=== PATIENT | male | born 1990 | race Caucasian/White ===

== ENCOUNTER 2024-10-06 20:04 | Emergency (ER) | payer OTHER, SELFPAY ==
[2024-10-06 20:11] VITALS: BP 163/110; PULSE 87; RESP 16; TEMP 36.6; O2SAT 98; BMI 37.9
--- NOTE | 2024-10-06 20:56 | ED_ITS ---
HPI - General Adult General Chief complaint: Head Injury/Pain Stated complaint: Head trauma--hit by door Time Seen by Provider: 10/06/24 20:34 History of Present Illness HPI narrative: getting in semi truck, door swung open and hit top L of head, small scrape. denies headache, states nausea and dizzy, denies any other injury. no LOC, no blood thinners. did state he hasnt taken his bp meds today. 33-year-old man presenting to the emergency department following a head injury. Had been getting into his semi truck when the door was caught by the wind and swung into an unanticipated position and was struck on the top of his head. Blood pressure is noted to be a little bit up on arrival. Admittedly has not taken blood pressure medication today. Did not pass out. Does not have any neck or back pain. Was recommended for evaluation due to this injury. Did feel some nausea. No visual disturbance. Was not actually dizzy but lightheaded he corrects. Related Data Home Medications ?Medication ?Instructions ?Recorded ?Confirmed verapamil PO 10/06/24 Allergies Allergy/AdvReac Type Severity Reaction Status Date / Time tramadol Allergy Mild Swelling Verified 10/06/24 20:58 Review of Systems Status of ROS: Reports: 6 or more systems reviewed and unremarkable except as noted in History and below [facility] Social History service: No Exam Narrative: Exam Narrative: Very pleasant man. NAD. Calm. Skin is warm and dry. Breathing easily. There is slight erythema and abrasion at the left upper forehead consistent with impact as he describes. No defect appreciated otherwise. No fluid at external ear canals. Neck is supple nontender. Back nontender. Moving all extremities without difficulty. Cranial nerves 2-12 are intact. Pupils are 3 mm and equal and briskly reactive. Normal [id number]. Tandem gait is good. Negative Romberg's. Appears to be mentating well including serial sevens. Heart in regular rate and rhythm. Const: Vital Signs, click to edit/add: Vital Signs - 24 hr 10/06/24 20:11 Temperature 97.8 F Pulse Rate [Pulse Oximeter] 87 Respiratory Rate 16 Blood Pressure [Ri ght Upper Arm] 163/110 H Pulse Oximetry 98 Oxygen Delivery Me thod Room Air Documenting provider has reviewed patient's vital signs: yes Course Vital Signs Vital signs: Initial Vital Signs Temperature 97.8 F 10/06/24 20:11 Temperature Source Temporal Artery Scan 10/06/24 20:11 Pulse Rate 87 10/06/24 20:11 Respiratory Rate 16 10/06/24 20:11 Blood Pressure 163/110 H 10/06/24 20:11 Blood Pressure Mean 127 H 10/06/24 20:11 Blood Pressure Position Sitting 10/06/24 20:11 Pulse Oximetry 98 10/06/24 20:11 Oxygen Delivery Method Room Air 10/06/24 20:11 Vital Signs Temperature 97.8 F 10/06/24 20:11 Pulse Rate 87 10/06/24 20:11 Respiratory Rate 16 10/06/24 20:11 Blood Pressure 163/110 H 10/06/24 20:11 Pulse Oximetry 98 10/06/24 20:11 Oxygen Delivery Method Room Air 10/06/24 20:11 Temperature 97.8 F 10/06/24 20:11 Pulse Rate 87 10/06/24 20:11 Respiratory Rate 16 10/06/24 20:11 Blood Pressure 163/110 H 10/06/24 20:11 Pulse Oximetry 98 10/06/24 20:11 Oxygen Delivery Method Room Air 10/06/24 20:11 Medications Administered Medications: Discontinued Medications Generic Name Dose Route Start Last Admin Trade Name Richq PRN Reason Stop Dose Admin Ibuprofen 800 mg 10/06/24 21:10 10/06/24 21:19 Ibuprofen 400 Mg Tablet PO 10/06/24 21:11 800 mg ONCE ONE Administration Ondansetron HCl 4 mg 10/06/24 20:51 10/06/24 20:57 Ondansetron Odt 4 Mg Tab PO 10/06/24 20:52 4 mg ONCE ONE Administration Medical Decision Making MDM Narrative Medical decision making narrative: Appears to have sustained a light abrasion and closed head injury. Surely tender. No neck or back injury to prompt further investigation/imaging. I do not appreciate need for further evaluation at this time. I am not convinced of concussion. Would however monitor for related signs and symptoms. Did accept dose of ibuprofen. Recommending icing. See patient discharge plan for further discussion Might want ice your forehead this evening; maybe even a couple of times daily over the next 2-3 days. Can take ibuprofen or acetaminophen for pain otherwise. Signs or symptoms of a concussion might be nausea or headache upon exertion which can also be an indication to back off that level of activity and reassess in a week.? Concussion can also be represented by smoldering nausea or smoldering headache, difficulty with concentration, mood lability, general somnolence, sense of persistent fog or dizziness/lightheadedness.? If these symptoms are becoming apparent and continuing beyond 7-10 days, be re-evaluated for further recommendations. Discharge Plan Discharge Clinical Impression: Closed head injury, Abrasion Patient Disposition: Home, Self-Care Condition: Stable Additional Instructions: Might want ice your forehead this evening; maybe even a couple of times daily over the next 2-3 days. Can take ibuprofen or acetaminophen for pain otherwise. Signs or symptoms of a concussion might be nausea or headache upon exertion whi ch can also be an indication to back off that level of activity and reassess in a week.? Concussion can also be represented by smoldering nausea or smoldering headache, difficulty with concentration, mood lability, general somnolence, sense of persistent fog or dizziness/lightheadedness.? If these symptoms are becoming apparent and continuing beyond 7-10 days, be re-evaluated for further recommendations. Prescriptions: No Action verapamil PO Stand Alone Forms: [employer] Info Instructions
[2024-10-06] MEDS: ONDANSETRON ODT 4 MG TAB PO (20:57)
[2024-10-06] MEDS: IBUPROFEN 400 MG TABLET 800 MG PO (21:19)
--- OUTSIDE RECORDS SUMMARY | 2024-10-06 21:25 | XMS_ITS | Clinical Summary ---
Author Organization [facility] Address [address] [place] [address] Care Team Providers Care Delivery Driver Name Role Phone Unavailable Primary Care Provider Unavailabl e Source Comments [facility],non-owned Affiliates and Associated Physician Practices is amultiple site organization consisting of ambulatory clinics and hospital sitesin [place], [place], [place]. This disclosure is being madepursuant to the Care Everywhere program and may not contain all information available regarding this patient. Last updated 18.[facility] Allergies Active Allergy Reactions Criticality Noted Date Comments Flu Virus Vaccine Unknown 07/16/2024 Tramadol Urticaria Medium 07/16/2024 Medications * Be aware that medications may not be up to date on this document. Alwaysverify current medications with the patient. Medication Sig Dispensed Refills Start Date End Date Status verapamil (Isoptin) 120 MG tabletIndications:Hy pertension Take 1 (one) tablet by mouth once daily Reasons: High Blood Pressure Active tamsulosin (Flomax) 0.4 MG capsule Take 1 (one) capsule by mouth once daily At the same time every day after a meal. 30 capsule 07/18/2024 Active ciprofloxacin (Cipro) 500 MG tablet Take 1 (one) tablet by mouth every 12 hours 10 tablet 07/18/2024 Active phenazopyridine (Pyridium) 200 MG tablet Take 1 (one) tablet by mouth 3 times daily, after meals 6 tablet 07/18/2024 Active Active Problems Problem Noted Date Diagnosed Date Abdominal pain, generalized 07/16/2024 Encounters Date Type Department Care Team Description 07/16/2024 3:13 PM CRUSHER Anesthesia Event [facility] [place] [address] [place] [address] Ryder Brown MD Allen, Nicole M, APPRAISER REAL ESTATE-HAND BRIM IRONER 07/16/2024 2:55 PM CRUSHER - 07/16/2024 3:37 PM CRUSHER Surgery [facility] [place] [facility] [address] [place] [address] Angelika Molina MD CYSTOSCOPY WITH INSERTION URETERAL STENT 07/16/2024 11:02 AM CRUSHER - 07/18/2024 1:34 PM CRUSHER Emergency [facility] - Ortho/Surgical [address] [place] [address] Dedra Cosby, Nichol Alex MD El-Aneed, Wasseem, MD Hospitalist Discharge Disposition: Home or Self Care 07/16/[address] [facility] - Urology [address], [address] [place] [address] Amina White, MACHELLE-SYSTEMS PROGRAMMER ANALYST Surgery Scheduling 07/16/2024 Travel from Last 3 Months Social History Tobacco Use Types Packs/Day Years Used Date Smoking Tobacco: Every Day Cigarettes Smokeless Tobacco: Never Tobacco Cessation:Ready to Q uit: Not Asked; Counseling Given: Not Answered Alcohol Use Standard Drinks/Week Comments Yes 0 (1 standard drink = 0.6 oz pur e alcohol) OCCASSIONLY AUDIT-C Answer Date Recorded Q1: How often do you have a drink containing alc ohol? Monthly or less 07/16/2024 Q2: How many drinks containi ng alcohol do you have on a typical day when you are drinking? 1 or 2 07/16/2024 Q3: How often do you have si x or more drinks on one occasion? Less than monthly 07/16/2024 Sex and Gender Information Value Date Recorded Sex Assigned at Not on file Gender Identity Not on file Sexual Orientation Not on file Last Filed Vital Signs Vital Sign Reading Time Taken Comments Blood Pressure 148/96 07/18/2024 12:34 PM CRUSHER Pulse 82 07/18/2024 12:34 PM CRUSHER Temperature 36.8 C (98.2 F) 07/18/2024 12:34 PM CRUSHER Respiratory Rate 18 07/18/2024 12:34 PM CRUSHER Oxygen Saturation 95% 07/18/2024 12:34 PM CRUSHER Inhaled Oxygen Concentration - - Weight 100.7 kg (222 lb) 07/16/2024 8:03 PM CRUSHER Height 167.6 cm (5' 6) 07/16/2024 8:03 PM CRUSHER Body Mass Index 35.83 07/16/2024 8:03 PM CRUSHER Plan of Treatment Health Maintenance Due Date Last Done Comments HIV SCREENING 12/14/2003 HEPATITIS C SCREENING 12/09/2006 DTAP/TDAP/TD VACCINES (1 - Tdap) 12/14/2007 HEPATITIS B VACCINE (1 of 3 - 19+ 3-dose series) 12/14/2007 PNEUMOCOCCAL VACCINE (1 of 2 - PCV) 12/14/2007 COVID-19 VACCINE ( - 2023-2 5 season) 2024 DEPRESSION SCREENING 07/21/2024 ZOSTER VACCINE (1 of 2) 2038 HIB VACCINE Aged Out No longer eligi ble based on patient's age to complete this topic HPV VACCINE Aged Out No longer eligi ble based on patient's age to complete this topic MENINGOCOCCAL (Group B) VACC INE SHARED DECISION-MAKING Aged Out No longer eligibl e based on patient's age to complete this topic MENINGOCOCCAL GROUPS A/C/Y/W VACCINE Aged Out No longer eligible b ased on patient's age to complete this topic Medical Devices Implanted Type Area Communications Operator Device Identifier Shelf Expiration Date Model / Serial / Lot Stent Uret 6fr 26cm Sft Tria Implanted:Qty: 1 on 07/16/2024 by Angelika Molina MD at [facility] Left: Ureter [employer] 01/27/2027 [id number] / / [id number] Procedures Procedure Name Priority Date/Time Associated Diagnosis Comments CARDIAC RHYTHM STRIP ORDER 07/19/2024 5:06 PM CRUSHER CBC W/O DIFFERENTIAL Routine 07/17/2024 4:59 AM CRUSHER Abdominal pain, generalized BASIC METABOLIC PANEL (CALCIUM TOTAL) Routine 07/17/2024 4:59 AM CRUSHER Abdominal pain, generalized FL [facility] SURGERY Routine 07/16/2024 3:42 PM CRUSHER Abdominal pain, generalized OR CYSTOSCOPY,INSERT URETERAL STENT 07/16/2024 3:[address] ABDOMEN PELVIS W CONTRAST STAT 07/16/2024 12:41 PM CRUSHER Abdominal pain, generalized URINALYSIS REFLEX MICROSCOPIC REFLEX CULTURE STAT 07/16/2024 12:27 PM CRUSHER CULTURE URINE STAT 07/16/2024 12:27 PM CRUSHER COMPREHENSIVE METABOLIC PANEL STAT 07/16/2024 10:13 AM CRUSHER CBC W AUTO DIFFERENTIAL STAT 07/16/2024 10:13 AM CRUSHER from Last 3 Months Results * CARDIAC RHYTHM STRIP ORDER (07/19/2024 5:06 PM CRUSHER) Narrative 07/19/2024 5:06 PM CRUSHER Ordered by an unspecified provider. Scanned Document CARDIAC SERVICES ORD ERABLES * (ABNORMAL) CBC W/O DIFFERENTIAL (07/17/2024 4:59 AM CRUSHER) WBC 11.7(H) 4.0 - 10.7 x10E9/L 07/17/2024 5:47 AM CRUSHER [facility] RBC Count 4.39 4.30 - 5.80 x10E12/L 07/17/2024 5:47 AM CRUSHER [facility] Hemoglobin 13.1(L) 13.3 - 17.5 g/dL 07/17/2024 5:47 AM CRUSHER [facility] Hematocrit 38.7 38.7 - 51.1 % 07/17/2024 5:47 AM CRUSHER [facility] MCV 88.2 80.0 - 98.0 fL 07/17/2024 5:47 AM CRUSHER [facility] MCH 29.8 26.7 - 33.6 pg 07/17/2024 5:47 AM CRUSHER [facility] MCHC 33.9 31.7 - 36.3 g/dL 07/17/2024 5:47 AM CRUSHER [facility] RDW-CV 12.4 11.3 - 14.8 % 07/17/2024 5:[address] [facility] Platelet Count 240 150 - 420 x10E9/L 07/17/2024 5:[address] [facility] MPV 10.5 7.8 - 11.4 fL 07/17/2024 5:[address] [facility] Blood BLOOD SPECIMEN / Unknown Lab Venipuncture / Unknown 07/17/2024 4:59 AM CRUSHER 07/17/2024 5:45 AM [facility] Mellissa Conner APPRAISER REAL ESTATE-SYSTEMS PROGRAMMER ANALYST LAB - HEMATOLOGY O RDERABLES [facility] [address] [place] [address] * (ABNORMAL) BASIC METABOLIC PANEL (CALCIUM TOTAL) (07/17/2024 4:59 AM [facility]) Glucose 174(H) 70 - 99 mg/dL 07/17/2024 6:[address] [facility] Sodium 133(L) 136 - 145 mmol/L 07/17/2024 6:[address] [facility] Potassium 4.5 3.5 - 5.1 mmol/L 07/17/2024 6:[address] [facility] Chloride 108(H) 98 - 107 mmol/L 07/17/2024 6:[address] [facility] CO2 20(L) 22 - 29 mmol/L 07/17/2024 6:[address] [facility] Calcium 8.8 8.4 - 10.4 mg/dL 07/17/2024 6:[address] [facility] Anion Gap 5(L) 6 - 16 mmol/L 07/17/2024 6:[address] [facility] BUN 21(H) 5.3 - 18.7 mg/dL 07/17/2024 6:[address] [facility] Creatinine 1.10 0.72 - 1.25 mg/dL 07/17/2024 6:[address] [facility] eGFR by CKD-EPI 90 >=90 mL/min/1.7 3 m2 07/17/2024 6:[address] [facility] Blood BLOOD SPECIMEN / Unknown Lab Venipuncture / Unknown 07/17/2024 4:59 AM CRUSHER 07/17/2024 5:45 AM CRUSHER Mellissa Conner APPRAISER REAL ESTATE-SYSTEMS PROGRAMMER ANALYST LAB - CHEMISTRY OR DERABLES Performing Organization Address City/[facility]/ZIP Co de Phone Number [facility] [address] [facility] [place] [address] * [place] [facility] Surgery (07/16/2024 3:42 PM CRUSHER) Narrative [facility] - 07/16/2024 3:43 PM CRUSHER For details of this study, please see the providers note. Angelika Molina MD FLUOROSCOPY ORDERABL ES Performing Organization Address [facility] Co de Phone Number [facility] * CT ABDOMEN AND PELVIS WITH IV CONTRAST (07/16/2024 12:41 PM CRUSHER) Anatomical Region Laterality Modality Abdomen, Pelvis Computed Tomogra phy 07/16/2024 12:5 0 PM CRUSHER Impressions 07/16/2024 12:54 PM CRUSHER IMPRESSION: 1. The left ureteral stent is in adequate position but there is left-sided hydronephrosis neck could be related to stent malfunction or occlusion. 2. Bilateral calyceal calculi more numerous on the left. 3. 4 to 5 mm stone or 2 adjacent smaller stones in the proximal left ureter adjacent to the stent. 4. Perinephric and periureteral stranding. 5. Diffuse fatty infiltration of the liver > Interpreting Provider: Alverto Mohamud MD on 07/16/2024 12:54 PM Narrative 07/16/2024 12:54 PM CRUSHER PROCEDURE: CT ABDOMEN PELVIS W CONTRAST DATE/TIME OF EXAM: 07/16/2024 12:45 PM INDICATION: R10.84: Generalized abdominal pain COMPARISON: None. ADDITIONAL CLINICAL INFORMATION (if provided): Left flank pain and recent ureteral stent placement one month earlier Ordering Provider Reason For Exam: CONTRAST: IOPAMIDOL 76 % IV SOLN:100 mL TECHNIQUE: CT ABDOMEN PELVIS W CONTRAST utilizing standard protocol.. Routine postcontrast imaging was performed with intravenous contrast with multiplanar reconstructions. CT dose reduction technique was used, including Automated Exposure Control. FINDINGS: The lower lung darnell are clear. In the upper abdomen there is diffuse fatty infiltration of the liver with relative sparing in the gallbladder fossa. Otherwise the liver spleen gallbladder pancreas and adrenals enhance normally. There is a left ureteral stent in adequate position. There is a punctate right and multiple small left-sided calyceal calculi. There is a 4 to 5 mm stone in the proximal left ureter adjacent to this stent. There is left-sided proximal hydronephrosis but no significant distal ureteral dilatation. There is perinephric and periureteral stranding There is bladder wall thickening but the bladder is decompressed. No bladder calculus is seen. The prostate is normal. The bowel is normal in caliber within normal appendix. Procedure Note Alverto Mohamud MD - 07/16/2024 PROCEDURE: CT ABDOMEN PELVIS W CONTRAST DATE/TIME OF EXAM: 07/16/2024 12:45 PM INDICATION: R10.84: Generalized abdominal pain COMPARISON: None. ADDITIONAL CLINICAL INFORMATION (if provided): Left flank pain andrecent ureteral stent placement one month earlier Ordering Provider Reason For Exam: CONTRAST: IOPAMIDOL 76 % IV SOLN:100 mL TECHNIQUE: CT ABDOMEN PELVIS W CONTRAST utilizing standard protocol.. Routine postcontrast imaging was performed with intravenous contrastwith multiplanar reconstructions. CT dose reduction technique was used, including Automated ExposureControl. FINDINGS: The lower lung darnell are clear. In the upper abdomen there is diffuse fatty infiltration of the liverwith relative sparing in the gallbladder fossa. Otherwise the liver spleen gallbladder pancreas and adrenals enhance normally. There is a left ureteral stent in adequate position. There is a punctate right andmultiple small left-sided calyceal calculi. There is a 4 to 5 mm stone in the proximal left ureter adjacent to this stent. There is left-sidedproximal hydronephrosis but no significant distal ureteral dilatation. There is perinephric and periureteral stranding There is bladder wall thickeningbut the bladder is decompressed. No bladder calculus is seen. The prostateis normal. The bowel is normal in caliber within normal appendix. IMPRESSION: 1. The left ureteral stent is in adequate position but there isleft-sided hydronephrosis neck could be related to stent malfunction or occlusion. 2. Bilateral calyceal calculi more numerous on the left. 3. 4 to 5 mm stone or 2 adjacent smaller stones in the proximal leftureter adjacent to the stent. 4. Perinephric and periureteral stranding. 5. Diffuse fatty infiltration of the liver > Interpreting Provider: Alverto Mohamud MD on 07/16/2024 12:54 PM Dedra Gallagherilling DO CT ORDERABLES * (ABNORMAL) URINALYSIS REFLEX MICROSCOPIC REFLEX CULTURE (07/16/2024 12:27 PM CRUSHER) Color UA Brown(A) Yellow, Straw 07/16/2024 12:[address] [facility] Clarity UA Turbid(A) Clear 07/16/2024 12:[address] [facility] Glucose UA Normal Normal 07/16/2024 12:[address] [facility] Bilirubin UA Negative Negative 07/16/2024 12:[address] [facility] Ketone UA Negative Negative 07/16/2024 12:[address] [facility] Specific [place] UA 1.015 1.005 - 1.030 07/16/2024 12:[address] [facility] Blood UA 3+(A) Negative 07/16/2024 12:[address] [facility] pH UA 6.0 5.0 - 9.0 pH 07/16/2024 12:[address] [facility] Protein UA 1+(A) Negative 07/16/2024 12:[address] [facility] Urobilinogen UA Normal Normal mg/dL 07/16/2024 12:[address] [facility] Nitrite UA Negative Negative 07/16/2024 12:[address] [facility] Leukocyte UA 75 COLT/uL(A) Negative 07/16/2024 12:[address] [facility] RBC UA >100(A) 0 - 5 # /hpf 07/16/2024 12:[address] [facility] WBC UA 21-50(A) 0 - 5 # /hpf 07/16/2024 12:[address] [facility] Bacteria UA Trace(A) None Seen 07/16/2024 12:[address] [facility] Squamous Epithelial Cells None Seen 0 - 5 /hpf 07/16/2024 12:[address] [facility] Mucus UA 1+ /LPF 07/16/2024 12:[address] [facility] Urine URINE SPECIMEN OBTAINED BY CLEAN CATCH PROCEDURE / Unknown Collection / Unknown 07/16/2024 12:27 PM CRUSHER 07/16/2024 12:29 PM CRUSHER Dedra Cosby DO LAB - URINALYSIS ORDERABLES [facility] [address] [place] [address] * CULTURE URINE (07/16/2024 12:27 PM CRUSHER) Pathologist [facility] Culture Urine No growth (<100 CFU/mL) KALLIE 07/17/2024 2:09 PM CRUSHER [facility] Urine URINE SPECIMEN OBTAINED BY CLEAN CATCH PROCEDURE / Unknown Collection / Unknown 07/16/2024 12:27 PM CRUSHER 07/16/2024 12:29 PM CRUSHER Dedra Cosby DO LAB - MICROBIOLOG Y ORDERABLES Performing Organization Address City/[facility]/ZIP Co de Phone Number [facility] [address] [place], [place] [address] [phone] * CBC W AUTO DIFFERENTIAL (07/16/2024 10:13 AM CRUSHER) WBC 6.8 4.0 - 10.7 x10E9/L 07/16/2024 10:[address] [facility] RBC Count 4.85 4.30 - 5.80 x10E12/L 07/16/2024 10:[address] [facility] Hemoglobin 14.6 13.3 - 17.5 g/dL 07/16/2024 10:[address] [facility] Hematocrit 41.3 38.7 - 51.1 % 07/16/2024 10:[address] [facility] MCV 85.2 80.0 - 98.0 fL 07/16/2024 10:[address] [facility] MCH 30.1 26.7 - 33.6 pg 07/16/2024 10:[address] [facility] MCHC 35.4 31.7 - 36.3 g/dL 07/16/2024 10:[address] [facility] RDW-CV 12.4 11.3 - 14.8 % 07/16/2024 10:[address] [facility] Platelet Count 249 150 - 420 x10E9/L 07/16/2024 10:[address] [facility] MPV 10.0 7.8 - 11.4 fL 07/16/2024 10:[address] [facility] Neutrophil % 64.3 41.0 - 74.0 % 07/16/2024 10:[address] [facility] Lymphocyte % 26.3 17.0 - 47.0 % 07/16/2024 10:[address] [facility] Monocyte % 7.3 3.0 - 11.0 % 07/16/2024 10:[address] [facility] Eosinophil % 1.5 0.0 - 7.0 % 07/16/2024 10:[address] [facility] Basophil % 0.3 0.0 - 1.6 % 07/16/2024 10:[address] [facility] Immature Granulocytes % 0.3 0.0 - 1.0 % 07/16/2024 10:[address] [facility] Neutrophil Absolute 4.38 1.60 - 7.50 x10E9/L 07/16/2024 10:[address] [facility] Lymphocyte Absolute 1.79 1.00 - 4.40 x10E9/L 07/16/2024 10:[address] [facility] Monocyte Absolute 0.50 0.15 - 1.00 x10E9/L 07/16/2024 10:[address] [facility] Eosinophil Absolute 0.10 0.00 - 0.60 x10E9/L 07/16/2024 10:[address] [facility] Basophil Absolute 0.02 0.00 - 0.13 x10E9/L 07/16/2024 10:[address] [facility] Blood BLOOD SPECIMEN / Unknown Venipuncture / Unknown 07/16/2024 10:13 AM CRUSHER 07/16/2024 10:17 AM [facility] Dedra Cosby DO LAB - HEMATOLOGY ORDERABLES [facility] [address] [place] [address] * (ABNORMAL) COMPREHENSIVE METABOLIC PANEL (07/16/2024 10:13 AM [facility]) [facility] Signature Glucose 108(H) 70 - 99 mg/dL 07/16/2024 10:[address] [facility] Sodium 137 136 - 145 mmol/L 07/16/2024 10:[address] [facility] Potassium 4.2 3.5 - 5.1 mmol/L 07/16/2024 10:[address] [facility] Chloride 111(H) 98 - 107 mmol/L 07/16/2024 10:[address] [facility] CO2 21(L) 22 - 29 mmol/L 07/16/2024 10:[address] [facility] Calcium 9.5 8.4 - 10.4 mg/dL 07/16/2024 10:[address] [facility] Anion Gap 5(L) 6 - 16 mmol/L 07/16/2024 10:[address] [facility] BUN 16 5.3 - 18.7 mg/dL 07/16/2024 10:[address] [facility] Creatinine 1.01 0.72 - 1.25 mg/dL 07/16/2024 10:[address] [facility] Alkaline Phosphatase 77 40 - 150 U/L 07/16/2024 10:[address] [facility] ALT 127(H) 0 - 55 U/L 07/16/2024 10:[address] [facility] AST 56(H) 5 - 34 U/L 07/16/2024 10:[address] [facility] Protein Total 7.7 6.4 - 8.3 gm/dL 07/16/2024 10:[address] [facility] Albumin 4.3 3.4 - 5.0 gm/dL 07/16/2024 10:[address] [facility] Bilirubin Total 0.4 0.2 - 1.2 mg/dL 07/16/2024 10:[address] [facility] eGFR by CKD-EPI >90 >=90 mL/min/1.7 3 m2 07/16/2024 10:[address] [facility] Blood BLOOD SPECIMEN / Unknown Venipuncture / Unknown 07/16/2024 10:13 AM [facility] 07/16/2024 10:17 AM [facility] Dedra Cosby DO LAB - CHEMISTRY O RDERABLES [facility] [address] [place] [address] from Last 3 Months Advance Directives * Full Code (Latest Code Status on File) Date Activated Date Inactivated Comments 07/16/2024 2:23 PM 07/18/2024 2:35 PM
--- OUTSIDE RECORDS SUMMARY | 2024-10-06 21:25 | XMS_ITS | Referral Summary ---
Author Organization [employer] [facility] [address] [place] [address] Care Team Providers Care Gelatin Powder Mixer Name Role Phone Provider, No Primary Primary Care Provider Unava ilable Encounters Date Type Department Care Team Description 08/14/2024 10:09 AM DIRECTOR OPERATIONS BROADCAST - 08/14/2024 11:59 PM DIRECTOR OPERATIONS BROADCAST Hospital Encounter [address] [address] Jonelle Fischer APRN, CNP Discharge Disposition: Discharge Home 08/14/2024 12:45 PM DIRECTOR OPERATIONS BROADCAST Office Visit [address] [id number] Jonelle Fischer APRN, CNP Dx: Vomiting, unspecified vomiting type, unspecified whether nausea present (Primary Dx) 07/31/2024 Travel 07/31/2024 7:24 PM DIRECTOR OPERATIONS BROADCAST - 07/31/2024 10:11 PM DIRECTOR OPERATIONS BROADCAST Emergency [facility] Emergency [address] [place] [id number] Han Valverde MD Dx: Renal colic on left side (Primary Dx) Discharge Disposition: Discharge Home from Last 3 Months Allergies Active Allergy Reactions Criticality Noted Date Comments Haemophilus Influenzae Type B Unknown Reaction Low 07/16/2024 Influenza Vaccine Tr-S 11 (Pf) Other Low 08/22/2020 Fainted Other reaction(s): Other (See Comments) Fainted Other reaction(s): Other (See Comments) Fainted Fainted Tramadol Anaphylaxis / Throat Swelling,Hives,Nausea and / or Vomiting,Rash High 05/29/2018 Nausea and vomiting Medications ibuprofen 800 mg oral Tablet TAKE 1 TABLET BY MOUTH EVERY 8 HOURS NEEDED FOR PAIN FOR 10 DAYS 06/04/2024 Active tamsulosin (FLOMAX) 0.4 mg oral Capsule Take 1 Capsule (0.4 mg) by mouth in the morning. 07/18/2024 Active verapamiL (ISOPTIN) 120 mg oral Tablet Take 1 Tablet (120 mg) by mouth in the morning. Active verapamiL (CALAN SR) 120 mg oral Tablet Sustained Release Take 1 Tablet (120 mg) by mouth at bedtime. 11/17/2023 10/25/19 25 Active ondansetron (ZOFRAN ODT) 4 mg oral Tablet, Rapid DissolveIndicati ons:Vomiting, unspecified vomiting type, unspecified whether nausea present Take 1 Tablet (4 mg) by mouth every 6 hours if needed for vomiting. 15 Tablet 08/14/2024 08/14/19 26 Active Active Problems Problem Noted Date Diagnosed Date Kidney stone 07/26/2024 Tricuspid valve disorder 10/28/2023 Gastro-esophageal reflux disease without esophag itis 05/01/2023 Nonrheumatic mitral (valve) insufficiency 2022 Obstructive sleep apnea 05/01/2023 Primary hypertension 05/01/2023 Rash and nonspecific skin eruption 10/10/2021 Social History Tobacco Use Types Packs/Day Years Used Date Smoking Tobacco: Former Cigarettes Smokeless Tobacco: Never Tobacco Cessation:Counseling Given: Not Answered Intimate Partner Violence Answer Date R ecorded Are you in a relationship wh ere you are physically hurt, threatened and/or made to feel afraid? No 08/14/2024 Sex and Gender Information Value Date Recorded Sex Assigned at Not on file Legal Sex Male 7:13 PM DIRECTOR OPERATIONS BROADCAST Gender Identity Not on file Sexual Orientation Not on file Last Filed Vital Signs Vital Sign Reading Time Taken Comments Blood Pressure 138/88 08/14/2024 11:59 AM DIRECTOR OPERATIONS BROADCAST Pulse 87 08/14/2024 11:51 AM DIRECTOR OPERATIONS BROADCAST Temperature 36.4 C (97.5 F) 08/14/2024 11:51 AM DIRECTOR OPERATIONS BROADCAST Respiratory Rate 18 08/14/2024 11:51 AM DIRECTOR OPERATIONS BROADCAST Oxygen Saturation 97% 08/14/2024 11:51 AM DIRECTOR OPERATIONS BROADCAST Inhaled Oxygen Concentration - - Weight 106.1 kg (234 lb) 07/31/2024 7:28 PM DIRECTOR OPERATIONS BROADCAST Height 167.6 cm (5' 6) 07/31/2024 7:28 PM DIRECTOR OPERATIONS BROADCAST Body Mass Index 37.77 07/31/2024 7:28 PM DIRECTOR OPERATIONS BROADCAST Plan of Treatment Not on file Procedures Procedure Name Priority Date/Time Associated Diagnosis Comments INFLUENZA A AND B VIRUS, NAAT Routine 08/14/2024 12:01 PM DIRECTOR OPERATIONS BROADCAST Vomiting, unspecified vomiting type, unspecified whether nausea present VELA TUBE STAT 07/31/2024 9:18 PM DIRECTOR OPERATIONS BROADCAST LIGHT BLUE TUBE STAT 07/31/2024 9:18 PM DIRECTOR OPERATIONS BROADCAST EXTRA TUBES STAT 07/31/2024 9:18 PM DIRECTOR OPERATIONS BROADCAST BLOOD CULTURE STAT 07/31/2024 9:04 PM DIRECTOR OPERATIONS BROADCAST BLOOD CULTURE STAT 07/31/2024 9:04 PM DIRECTOR OPERATIONS BROADCAST COMPLETE BLOOD COUNT AND DIFFERENTIAL STAT 07/31/2024 9:04 PM DIRECTOR OPERATIONS BROADCAST BASIC METABOLIC PANEL STAT 07/31/2024 9:04 PM DIRECTOR OPERATIONS BROADCAST COMPLETE BLOOD COUNT AND DIFFERENTIAL STAT 07/31/2024 9:04 PM DIRECTOR OPERATIONS BROADCAST XR ABDOMEN ONE VIEW STAT 07/31/2024 8 :16 PM DIRECTOR OPERATIONS BROADCAST URINE CULTURE STAT 07/31/2024 7:58 PM DIRECTOR OPERATIONS BROADCAST URINALYSIS, MICROSCOPIC ONLY STAT 07/31/2024 7:58 PM DIRECTOR OPERATIONS BROADCAST URINALYSIS WITH REFLEX TO MICROSCOPIC STAT 07/31/2024 7:58 PM DIRECTOR OPERATIONS BROADCAST from Last 3 Months Results * INFLUENZA A AND B VIRUS, NAAT (08/14/2024 12:01 PM DIRECTOR OPERATIONS BROADCAST) Influenza A, MEDINA Negative Negative COYNE ID NOW 08/14/2024 12:20 PM DIRECTOR OPERATIONS BROADCAST [facility] Influenza B, MEDINA Negative Negative COYNE ID NOW 08/14/2024 12:20 PM DIRECTOR OPERATIONS BROADCAST [facility] Swab BOTH ANTERIOR NARES / Unknown Non-blood Collection / Unknown 08/14/2024 12:01 PM DIRECTOR OPERATIONS BROADCAST 08/14/2024 12:04 PM DIRECTOR OPERATIONS BROADCAST Jonelle Fischer APRNMUSICAL INSTRUMENTS ASSEMBLER LAB MOLECULAR ORDERABLES Final Result Performing Organization Address [facility]/ZIP Co de Phone Number [facility] [address] [place] [address], * VELA TUBE (07/31/2024 9:18 PM DIRECTOR OPERATIONS BROADCAST) Blood VENOUS BLOOD / Unknown 07/31/2024 9:18 PM DIRECTOR OPERATIONS BROADCAST 07/31/2024 9:18 PM DIRECTOR OPERATIONS BROADCAST Han Valverde MD LAB CHEMISTRY ORDERABLES Fi nal Result Performing Organization Address [facility]/ZIP Co de Phone Number [facility] [address] [place] [address], * LIGHT BLUE TUBE (07/31/2024 9:18 PM DIRECTOR OPERATIONS BROADCAST) Blood VENOUS BLOOD / Unknown 07/31/2024 9:18 PM DIRECTOR OPERATIONS BROADCAST 07/31/2024 9:18 PM DIRECTOR OPERATIONS BROADCAST Han Valverde MD LAB CHEMISTRY ORDERABLES Fi nal Result Performing Organization Address [facility]/ZIP Co de Phone Number [facility] [address], [place] [address], * (ABNORMAL) COMPLETE BLOOD COUNT AND DIFFERENTIAL (07/31/2024 9:04 PM DIRECTOR OPERATIONS BROADCAST) [facility] WBC Count, Corrected 10.3 4.8 - 10.8 10(3)/uL 07/31/2024 9:21 PM DIRECTOR OPERATIONS BROADCAST [facility] RBC Count 4.84 4.70 - 6.10 10(6)/uL 07/31/2024 9:21 PM DIRECTOR OPERATIONS BROADCAST [facility] Hemoglobin 14.3 14.0 - 18.0 g/dL 07/31/2024 9:21 PM DIRECTOR OPERATIONS BROADCAST [facility] Hematocrit 41.6(L) 42.0 - 52.0 % 07/31/2024 9:21 PM [facility] MCV 86.0 80.0 - 94.0 fL 07/31/2024 9:21 PM [facility] MCH 29.5 27.0 - 31.0 pg 07/31/2024 9:21 PM [facility] MCHC 34.4 31.0 - 36.5 g/dL 07/31/2024 9:21 PM [facility] RDW 12.4 11.5 - 14.5 % 07/31/2024 9:21 PM [facility] Platelets 259 150 - 350 10(3)/uL 07/31/2024 9:21 PM [facility] MPV 10.3 9.0 - 13.0 fL 07/31/2024 9:21 PM [facility] % Neutrophils 70.7 40.0 - 75.0 % 07/31/2024 9:21 PM [facility] % Lymphocytes 19.5(L) 20.0 - 45.0 % 07/31/2024 9:21 PM [facility] % Monocytes 7.3 1.0 - 10.0 % 07/31/2024 9:21 PM [facility] % Eosinophils 1.4 0.0 - 7.0 % 07/31/2024 9:21 PM [facility] % Basophils 0.3 0.0 - 3.0 % 07/31/2024 9:21 PM [facility] % Immature Granulocytes 0.8 0.0 - 5.0 % 07/31/2024 9:21 PM [facility] Abs Neutrophils 7.3 1.2 - 8.1 10(3)/uL 07/31/2024 9:21 PM [facility] Abs Lymphocytes 2.0 0.6 - 4.7 10(3)/uL 07/31/2024 9:21 PM [facility] Abs Monocytes 0.8 0.0 - 1.3 10(3)/uL 07/31/2024 9:21 PM [facility] Abs Eosinophils 0.1 0.0 - 0.7 10(3)/uL 07/31/2024 9:21 PM [facility] Abs Basophils 0.0 0.0 - 0.2 10(3)/uL 07/31/2024 9:21 PM DIRECTOR OPERATIONS BROADCAST [facility] Abs Immature Granulocytes 0.08 0.00 - 0.54 10(3)/uL 07/31/2024 9:21 PM DIRECTOR OPERATIONS BROADCAST [facility] Blood VENOUS BLOOD / Unknown Venipuncture / Unknown 07/31/2024 9:04 PM DIRECTOR OPERATIONS BROADCAST 07/31/2024 9:18 PM DIRECTOR OPERATIONS BROADCAST Han Valverde MD LAB HEMATOLOGY ORDERABLES F inal Result Performing Organization Address [facility]/ZIP Co de Phone Number [facility] [address] [place] [id number], * BLOOD CULTURE (07/31/2024 9:04 PM DIRECTOR OPERATIONS BROADCAST) Only the most recent of2 resultswithin the time period is included. Culture No growth at 5 days 08/05/2024 10:00 PM [facility] Blood VENOUS BLOOD / Unknown Venipuncture / Unknown 07/31/2024 9:04 PM DIRECTOR OPERATIONS BROADCAST 07/31/2024 9:19 PM DIRECTOR OPERATIONS BROADCAST Han Valverde MD LAB MICROBIOLOGY ORDERABLES Final Result Performing Organization Address [facility]/ZIP Co de Phone Number [facility] [address], [place] [address], * BASIC METABOLIC PANEL (07/31/2024 9:04 PM DIRECTOR OPERATIONS BROADCAST) Sodium 138 136 - 145 mmol/L 07/31/2024 9:47 PM [facility] Potassium 4.5 3.5 - 5.1 mmol/L 07/31/2024 9:47 PM [facility] Chloride 103 98 - 107 mmol/L 07/31/2024 9:47 PM [facility] CO2 24 22 - 29 mmol/L 07/31/2024 9:47 PM [facility] Anion Gap 15.5 mmol/L 07/31/2024 9:47 PM [facility] Creatinine 0.94 0.67 - 1.17 mg/dL 07/31/2024 9:47 PM [facility] Blood Urea Nitrogen 20.0 6.0 - 20.0 mg/dL 07/31/2024 9:47 PM [facility] BUN/Creatinine Ratio 21.28 ratio 07/31/2024 9:47 PM [facility] Calcium, Total 9.4 8.6 - 10.0 mg/dL 07/31/2024 9:47 PM [facility] Glucose 100 70 - 110 mg/dL 07/31/2024 9:47 PM [facility] eGFR >60 >=60 mL/min/1.7 3m(2) 07/31/2024 9:47 PM [facility] Comment:Calculation based on the Chronic Kidney Disease Epidemiology Collaboration (CKD-EPI) equation refit without adjustment for race. eCrCl (Rx) - Adults 125.2 mL/min 07/31/2024 9:47 PM [facility] Blood VENOUS BLOOD / Unknown Venipuncture / Unknown 07/31/2024 9:04 PM DIRECTOR OPERATIONS BROADCAST 07/31/2024 9:18 PM DIRECTOR OPERATIONS BROADCAST Han Valverde MD LAB CHEMISTRY ORDERABLES Fi nal Result Performing Organization Address [facility]/State/ZIP Co de Phone Number [facility] [address] [place] [address], * XR ABDOMEN ONE VIEW (07/31/2024 8:16 PM DIRECTOR OPERATIONS BROADCAST) Anatomical Region Laterality Modality Abdomen Computed Radiogr aphy 07/31/2024 8:38 PM DIRECTOR OPERATIONS BROADCAST Narrative 07/31/2024 8:38 PM DIRECTOR OPERATIONS BROADCAST EXAM: XR ABDOMEN ONE VIEW INDICATION: Abdominal pain COMPARISON: None. FINDINGS: Supine and upright views of the abdomen. Moderate quantity of stool in the colon. No dilated loops of bowel. Left double-J ureteral stent appears to be in good position. No pathologic calcifications. Soft tissues are unremarkable. IMPRESSION: Moderate quantity of stool in the colon. Procedure Note Mikhail Fernandes, DO - 01/11/2025 EXAM: XR ABDOMEN ONE VIEW INDICATION: Abdominal pain COMPARISON: None. FINDINGS: Supine and upright views of the abdomen. Moderate quantity of stool inthe colon. No dilated loops of bowel. Left double-J ureteral stent appearsto be in good position. No pathologic calcifications. Soft tissues areunremarkable. IMPRESSION: Moderate quantity of stool in the colon. Han Valverde MD RAD DX Final Resul t * (ABNORMAL) URINALYSIS, MICROSCOPIC ONLY (07/31/2024 7:58 PM DIRECTOR OPERATIONS BROADCAST) RBC, Urine 20-50(A) None Seen, 1-2 /HPF 07/31/2024 8:12 PM DIRECTOR OPERATIONS BROADCAST [facility] WBC, Urine 5-10(A) None Seen, 1-5 /HPF 07/31/2024 8:12 PM DIRECTOR OPERATIONS BROADCAST [facility] Bacteria, Urine Many(A) None Seen, Few /HPF 07/31/2024 8:12 PM DIRECTOR OPERATIONS BROADCAST [facility] Squamous Epithelial Cells, Urine 1-5 None Seen, 1-5 /HPF 07/31/2024 8:12 PM DIRECTOR OPERATIONS BROADCAST [facility] Other Crystals, Urine Amorphous Crystals /HPF 07/31/2024 8:12 PM DIRECTOR OPERATIONS BROADCAST [facility] Urine URINE SPECIMEN OBTAINED BY CLEAN CATCH PROCEDURE / Unknown Non-blood Collection / Unknown 07/31/2024 7:58 PM DIRECTOR OPERATIONS BROADCAST 07/31/2024 8:05 PM DIRECTOR OPERATIONS BROADCAST Han Valverde MD LAB URINE ORDERABLES Final Result [facility] [address] [place] [id number], * (ABNORMAL) URINALYSIS WITH REFLEX TO MICROSCOPIC (07/31/2024 7:58 PM DIRECTOR OPERATIONS BROADCAST) Color, Urine Yellow Yellow 07/31/2024 8:09 PM DIRECTOR OPERATIONS BROADCAST [facility] Clarity, Urine Cloudy(A) Clear 07/31/2024 8:09 PM DIRECTOR OPERATIONS BROADCAST [facility] Specific [place], Urine >=1.030(H) 1.005 - <1.030 07/31/2024 8:09 PM [facility] Glucose, Urine Negative Negative 07/31/2024 8:09 PM [facility] Bilirubin, Urine Negative Negative 07/31/2024 8:09 PM [facility] Ketone, Urine Negative Negative 07/31/2024 8:09 PM [facility] Blood, Urine 3+(A) Negative 07/31/2024 8:09 PM [facility] pH, Urine 6.0 5.0 - 8.5 pH 07/31/2024 8:09 PM [facility] Protein, Urine 2+(A) Negative 07/31/2024 8:09 PM [facility] Urobilinogen, Urine 0.2 <2.0 EU/dL 07/31/2024 8:09 PM [facility] Nitrite, Urine Negative Negative 07/31/2024 8:09 PM [facility] Leukocyte Esterase, Urine Trace(A) Negative 07/31/2024 8:09 PM [facility] Urine URINE SPECIMEN OBTAINED BY CLEAN CATCH PROCEDURE / Unknown Non-blood Collection / Unknown 07/31/2024 7:58 PM DIRECTOR OPERATIONS BROADCAST 07/31/2024 8:05 PM DIRECTOR OPERATIONS BROADCAST us Han Valverde MD LAB URINE ORDERABLES Final Result Performing Organization Address [facility]/ZIP Co de Phone Number [facility] [address] [place] [phone], * URINE CULTURE (07/31/2024 7:58 PM DIRECTOR OPERATIONS BROADCAST) Culture No growth at 2 days 08/02/2024 10:52 AM DIRECTOR OPERATIONS BROADCAST [facility] Urine URINE SPECIMEN OBTAINED BY CLEAN CATCH PROCEDURE / Unknown Non-blood Collection / Unknown 07/31/2024 7:58 PM DIRECTOR OPERATIONS BROADCAST 07/31/2024 8:05 PM DIRECTOR OPERATIONS BROADCAST us Han Valverde MD LAB MICROBIOLOGY ORDERABLES Final Result Performing Organization Address [facility]/ZIP Co de Phone Number [facility] [address] [place] [address] [place] [address], from Last 3 Months [facility] [id number] [facility] Care Teams Gelatin Powder Mixer Relationship Specialty Start Date End Date Provider, No Primary . LIZ CURIEL [id number] PCP - General 07/31/24 Additional Source Comments PLEASE NOTE: Replies to this message will not be received.[facility]
--- OUTSIDE RECORDS SUMMARY | 2024-10-06 21:26 | XMS_ITS | Clinical Summary ---
Author Organization [facility] Address [address] [id number] Care Team Providers Care Underground Supervisor Name Role Phone Provider, No Primary Primary Care Provider Unava ilable Allergies Active Allergy Reactions Criticality Noted Date [...] 05/01/2023 Rash and nonspecific skin eruption 10/10/2021 Encounters Date Type Department Care Team Description 08/14/2024 12:45 PM EMBEDDED CASE MANAGER Office Visit [facility] [address] [place] [id number] Jonelle Fischer APRN, CNP Dx: Vomiting, unspecified vomiting type, unspecified whether nausea present (Primary Dx) 08/14/2024 10:09 AM EMBEDDED CASE MANAGER - 08/14/2024 11:59 PM EMBEDDED CASE MANAGER Hospital Encounter [address] [address] Jonelle Fischer APRN, CNP Discharge Disposition: Discharge Home 07/31/2024 7:24 PM EMBEDDED CASE MANAGER - 07/31/2024 10:11 PM EMBEDDED CASE MANAGER Emergency [facility] Emergency [address] [place] [phone] Han Valverde MD Dx: Renal colic on left side (Primary Dx) Discharge Disposition: Discharge Home 07/31/2024 Travel from Last 3 Months Social History [...] on file Legal Sex Male 7:13 PM EMBEDDED CASE MANAGER Gender Identity Not on file Sexual Orientation Not on file Last Filed Vital Signs Vital Sign Reading Time Taken Comments Blood Pressure 138/88 08/14/2024 11:59 AM EMBEDDED CASE MANAGER Pulse 87 08/14/2024 11:51 AM EMBEDDED CASE MANAGER Temperature 36.4 C (97.5 F) 08/14/2024 11:51 AM EMBEDDED CASE MANAGER Respiratory Rate 18 08/14/2024 11:51 AM EMBEDDED CASE MANAGER Oxygen Saturation 97% 08/14/2024 11:51 AM EMBEDDED CASE MANAGER Inhaled Oxygen Concentration - - Weight 106.1 kg (234 lb) 07/31/2024 7:28 PM EMBEDDED CASE MANAGER Height 167.6 cm (5' 6) 07/31/2024 7:28 PM EMBEDDED CASE MANAGER Body Mass Index 37.77 07/31/2024 7:28 PM EMBEDDED CASE MANAGER Plan of Treatment Health Maintenance Due Date Last Done Comments Hepatitis C Testing 1988 Depression Screening 2000 HIV Screen 12/14/2003 DTaP/Tdap/Td Vaccines (1 - Tdap) 12/14/2007 Hepatitis B Vaccines (1 of 3 - 19+ 3-dose series) 12/14/2007 Lipids Standard 12/14/2023 COVID-19 Vaccine (1 - 2023-2 5 season) 2024 Influenza Vaccine (#1) 2024 Varicella Zoster Sequential (1 of 2) 2038 Respiratory Syncytial Virus (RSV) Vaccine (1 - 1-dose 75+ series) 12/14/2063 HIB Vaccines Aged Out No longer eligi ble based on patient's age to complete this topic HPV Vaccines Aged Out No longer eligi ble based on patient's age to complete this topic Hepatitis A Vaccines Aged Out No long er eligible based on patient's age to complete this topic Meningococcal B Vaccines Aged Out No longer eligible based on patient's age to complete this topic Meningococcal Vaccines Aged Out No lo nger eligible based on patient's age to complete this topic Pneumococcal Vaccine (0-49 Years) Aged Out No longer eligible based on patient's age to complete this topic Procedures Procedure Name Priority Date/Time Associated Diagnosis Comments INFLUENZA A AND B VIRUS, NAAT Routine 08/14/2024 12:01 PM EMBEDDED CASE MANAGER Vomiting, unspecified vomiting type, unspecified whether nausea present VELA TUBE STAT 07/31/2024 9:18 PM EMBEDDED CASE MANAGER LIGHT BLUE TUBE STAT 07/31/2024 9:18 PM EMBEDDED CASE MANAGER EXTRA TUBES STAT 07/31/2024 9:18 PM EMBEDDED CASE MANAGER BLOOD CULTURE STAT 07/31/2024 9:04 PM EMBEDDED CASE MANAGER BLOOD CULTURE STAT 07/31/2024 9:04 PM EMBEDDED CASE MANAGER COMPLETE BLOOD COUNT AND DIFFERENTIAL STAT 07/31/2024 9:04 PM EMBEDDED CASE MANAGER BASIC METABOLIC PANEL STAT 07/31/2024 9:04 PM EMBEDDED CASE MANAGER COMPLETE BLOOD COUNT AND DIFFERENTIAL STAT 07/31/2024 9:04 PM EMBEDDED CASE MANAGER XR ABDOMEN ONE VIEW STAT 07/31/2024 8 :16 PM EMBEDDED CASE MANAGER URINE CULTURE STAT 07/31/2024 7:58 PM EMBEDDED CASE MANAGER URINALYSIS, MICROSCOPIC ONLY STAT 07/31/2024 7:58 PM EMBEDDED CASE MANAGER URINALYSIS WITH REFLEX TO MICROSCOPIC STAT 07/31/2024 7:58 PM EMBEDDED CASE MANAGER from Last 3 Months Results * INFLUENZA A AND B VIRUS, NAAT (08/14/2024 12:01 PM EMBEDDED CASE MANAGER) Influenza A, MEDINA Negative Negative COYNE ID NOW 08/14/2024 12:20 PM EMBEDDED CASE MANAGER [facility] Influenza B, MEDINA Negative Negative COYNE ID NOW 08/14/2024 12:20 PM EMBEDDED CASE MANAGER [facility] Swab BOTH ANTERIOR NARES / Unknown Non-blood Collection / Unknown 08/14/2024 12:01 PM EMBEDDED CASE MANAGER 08/14/2024 12:04 PM EMBEDDED CASE MANAGER Jonelle Fischer APRN, CNP LAB MOLECULAR ORDERABLES Final Result Performing Organization Address [facility]/ZIP Co de Phone Number [facility] [address] [address], * VELA TUBE (07/31/2024 9:18 PM EMBEDDED CASE MANAGER) Blood VENOUS BLOOD / Unknown 07/31/2024 9:18 PM EMBEDDED CASE MANAGER 07/31/2024 9:18 PM EMBEDDED CASE MANAGER us Han Valverde MD LAB CHEMISTRY ORDERABLES Fi nal Result Performing Organization Address [facility]/ZIP Co de Phone Number [facility] [address], [place] [address], * LIGHT BLUE TUBE (07/31/2024 9:18 PM EMBEDDED CASE MANAGER) Blood VENOUS BLOOD / Unknown 07/31/2024 9:18 PM EMBEDDED CASE MANAGER 07/31/2024 9:18 PM EMBEDDED CASE MANAGER us Han Valverde MD LAB CHEMISTRY ORDERABLES Fi nal Result [facility] [address] [place] [address], * (ABNORMAL) COMPLETE BLOOD COUNT AND DIFFERENTIAL (07/31/2024 9:04 PM EMBEDDED CASE MANAGER) WBC Count, Corrected 10.3 4.8 - 10.8 10(3)/uL 07/31/2024 9:21 PM [facility] RBC Count 4.84 4.70 - 6.10 10(6)/uL 07/31/2024 9:21 PM [facility] Hemoglobin 14.3 14.0 - 18.0 g/dL 07/31/2024 9:21 PM [facility] Hematocrit 41.6(L) 42.0 - 52.0 % 07/31/2024 9:21 PM [facility] MCV 86.0 80.0 - 94.0 fL 07/31/2024 9:21 PM [facility] MCH 29.5 27.0 - 31.0 pg 07/31/2024 9:21 PM [facility] MCHC 34.4 31.0 - 36.5 g/dL 07/31/2024 9:21 PM [facility] RDW 12.4 11.5 - 14.5 % 07/31/2024 9:21 PM [facility] Platelets 259 150 - 350 10(3)/uL 07/31/2024 9:21 PM [facility] MPV 10.3 9.0 - 13.0 fL 07/31/2024 9:21 PM [facility] % Neutrophils 70.7 40.0 - 75.0 % 07/31/2024 9:21 PM [facility] % Lymphocytes 19.5(L) 20.0 - 45.0 % 07/31/2024 9:21 PM [facility] % Monocytes 7.3 1.0 - 10.0 % 07/31/2024 9:21 PM [facility] % Eosinophils 1.4 0.0 - 7.0 % 07/31/2024 9:21 PM [facility] % Basophils 0.3 0.0 - 3.0 % 07/31/2024 9:21 PM [facility] % Immature Granulocytes 0.8 0.0 - 5.0 % 07/31/2024 9:21 PM [facility] Abs Neutrophils 7.3 1.2 - 8.1 10(3)/uL 07/31/2024 9:21 PM [facility] Abs Lymphocytes 2.0 0.6 - 4.7 10(3)/uL 07/31/2024 9:21 PM [facility] Abs Monocytes 0.8 0.0 - 1.3 10(3)/uL 07/31/2024 9:21 PM [facility] Abs Eosinophils 0.1 0.0 - 0.7 10(3)/uL 07/31/2024 9:21 PM [facility] Abs Basophils 0.0 0.0 - 0.2 10(3)/uL 07/31/2024 9:21 PM [facility] Abs Immature Granulocytes 0.08 0.00 - 0.54 10(3)/uL 07/31/2024 9:21 PM [facility] Blood VENOUS BLOOD / Unknown Venipuncture / Unknown 07/31/2024 9:04 PM EMBEDDED CASE MANAGER 07/31/2024 9:18 PM EMBEDDED CASE MANAGER us Han Valverde MD LAB HEMATOLOGY ORDERABLES F inal Result [facility] [address] [place] [address], * BLOOD CULTURE (07/31/2024 9:04 PM EMBEDDED CASE MANAGER) Only the most recent of2 resultswithin the time period is included. Culture No growth at 5 days 08/05/2024 10:00 PM [facility] Blood VENOUS BLOOD / Unknown Venipuncture / Unknown 07/31/2024 9:04 PM EMBEDDED CASE MANAGER 07/31/2024 9:19 PM EMBEDDED CASE MANAGER Han Valverde MD LAB MICROBIOLOGY ORDERABLES Final Result [facility] [address] [place] [address], * BASIC METABOLIC PANEL (07/31/2024 9:04 PM EMBEDDED CASE MANAGER) Sodium 138 136 - 145 mmol/L 07/31/2024 9:47 PM [facility] Potassium 4.5 3.5 - 5.1 mmol/L 07/31/2024 9:47 PM [facility] Chloride 103 98 - 107 mmol/L 07/31/2024 9:47 PM [facility] CO2 24 22 - 29 mmol/L 07/31/2024 9:47 PM [facility] Anion Gap 15.5 mmol/L 07/31/2024 9:47 PM [facility] Creatinine 0.94 0.67 - 1.17 mg/dL 07/31/2024 9:47 PM [facility] Blood Urea Nitrogen 20.0 6.0 - 20.0 mg/dL 07/31/2024 9:47 PM [facility] BUN/Creatinine Ratio 21.28 ratio 07/31/2024 9:47 PM [facility] Calcium, Total 9.4 8.6 - 10.0 mg/dL 07/31/2024 9:47 PM [facility] Glucose 100 70 - 110 mg/dL 07/31/2024 9:47 PM [facility] eGFR >60 >=60 mL/min/1.7 3m(2) 07/31/2024 9:47 PM [facility] Comment:Calculation based on the Chronic Kidney Disease Epidemiology Collaboration (CKD-EPI) equation refit without adjustment for race. eCrCl (Rx) - Adults 125.2 mL/min 07/31/2024 9:47 PM [facility] Blood VENOUS BLOOD / Unknown Venipuncture / Unknown 07/31/2024 9:04 PM EMBEDDED CASE MANAGER 07/31/2024 9:18 PM EMBEDDED CASE MANAGER Han Valverde MD LAB CHEMISTRY ORDERABLES Fi nal Result [facility] [address] [place] [address], [place] [phone] * XR ABDOMEN ONE VIEW (07/31/2024 8:16 PM EMBEDDED CASE MANAGER) Anatomical Region Laterality Modality Abdomen Computed Radiogr aphy 07/31/2024 8:38 PM EMBEDDED CASE MANAGER Narrative 07/31/2024 8:38 PM EMBEDDED CASE MANAGER EXAM: XR ABDOMEN ONE VIEW INDICATION: Abdominal pain COMPARISON: None. FINDINGS: Supine and upright views of the abdomen. Moderate quantity of stool in the colon. No dilated loops of bowel. Left double-J ureteral stent appears to be in good position. No pathologic calcifications. Soft tissues are unremarkable. IMPRESSION: Moderate quantity of stool in the colon. Procedure Note Mikhail Fernandes, DO - 07/31/2024 EXAM: XR ABDOMEN ONE VIEW INDICATION: Abdominal [...] (ABNORMAL) URINALYSIS, MICROSCOPIC ONLY (07/31/2024 7:58 PM EMBEDDED CASE MANAGER) RBC, Urine 20-50(A) None Seen, 1-2 /HPF 07/31/2024 8:12 PM EMBEDDED CASE MANAGER [facility] WBC, Urine 5-10(A) None Seen, 1-5 /HPF 07/31/2024 8:12 PM EMBEDDED CASE MANAGER [facility] Bacteria, Urine Many(A) None Seen, Few /HPF 07/31/2024 8:12 PM EMBEDDED CASE MANAGER [facility] Squamous Epithelial Cells, Urine 1-5 None Seen, 1-5 /HPF 07/31/2024 8:12 PM [facility] Other Crystals, Urine Amorphous Crystals /HPF 07/31/2024 8:12 PM [facility] Urine URINE SPECIMEN OBTAINED BY CLEAN CATCH PROCEDURE / Unknown Non-blood Collection / Unknown 07/31/2024 7:58 PM EMBEDDED CASE MANAGER 07/31/2024 8:05 PM EMBEDDED CASE MANAGER us Han Valverde MD LAB URINE ORDERABLES Final Result [facility] [address] [place] [address], [place] [phone] * (ABNORMAL) URINALYSIS WITH REFLEX TO MICROSCOPIC (07/31/2024 7:58 PM EMBEDDED CASE MANAGER) Color, Urine Yellow Yellow 07/31/2024 8:09 PM [facility] Clarity, Urine Cloudy(A) Clear 07/31/2024 8:09 PM [facility] Specific [place], Urine >=1.030(H) 1.005 - <1.030 07/31/2024 8:09 PM [facility] Glucose, Urine Negative Negative 07/31/2024 8:09 PM [facility] Bilirubin, Urine Negative Negative 07/31/2024 8:09 PM [facility] Ketone, Urine Negative Negative 07/31/2024 8:09 PM [facility] Blood, Urine 3+(A) Negative 07/31/2024 8:09 PM [facility] pH, Urine 6.0 5.0 - 8.5 pH 07/31/2024 8:09 PM [facility] Protein, Urine 2+(A) Negative 07/31/2024 8:09 PM [facility] Urobilinogen, Urine 0.2 <2.0 EU/dL 07/31/2024 8:09 PM [facility] Nitrite, Urine Negative Negative 07/31/2024 8:09 PM [facility] Leukocyte Esterase, Urine Trace(A) Negative 07/31/2024 8:09 PM [facility] Urine URINE SPECIMEN OBTAINED BY CLEAN CATCH PROCEDURE / Unknown Non-blood Collection / Unknown 07/31/2024 7:58 PM EMBEDDED CASE MANAGER 07/31/2024 8:05 PM EMBEDDED CASE MANAGER Han Valverde MD LAB URINE ORDERABLES Final Result Performing Organization Address [facility]/ZIP Co de Phone Number [facility] [address] [place] [address], [place] [phone] * URINE CULTURE (07/31/2024 7:58 PM EMBEDDED CASE MANAGER) Culture No growth at 2 days 08/02/2024 10:52 AM EMBEDDED CASE MANAGER [facility] Urine URINE SPECIMEN OBTAINED BY CLEAN CATCH PROCEDURE / Unknown Non-blood Collection / Unknown 07/31/2024 7:58 PM EMBEDDED CASE MANAGER 07/31/2024 8:05 PM EMBEDDED CASE MANAGER Han Valverde MD LAB MICROBIOLOGY ORDERABLES Final Result Performing Organization Address City/[facility] Co de Phone Number [facility] [address] [facility] [place] [place] [address], [place] [phone] from Last 3 [place] [address] [facility] Care Teams Underground Supervisor Relationship Specialty Start Date End Date Provider, No Primary . LIZ CURIEL [id number] PCP - General 07/31/24 Additional Source Comments PLEASE NOTE: Replies to this message will not be received.[facility]
--- OUTSIDE RECORDS SUMMARY | 2024-10-06 21:26 | XMS_ITS | Clinical Summary ---
Author Organization [facility] [email or web address] Address [address] [place] [address] [address] [place] [address] Care Team Providers Care Tractor Technician Name Role Phone Unavailable Primary Care Provider Unavailabl e Encounters Date Type Department Care Team Description 07/26/[address] [facility] [address] [place] [address] Ashley Simpson, RN from Last 3 Months Social History Tobacco Use Types Packs/Day Years Used Date Smoking Tobacco: Never Assessed Sex and Gender Information Value Date Recorded Sex Assigned at Not on file Legal Sex Male 3:07 AM MOVE COORDINATOR Gender Identity Not on file Sexual Orientation Not on file Plan of Treatment Not on file
--- OUTSIDE RECORDS SUMMARY | 2024-10-06 21:26 | XMS_ITS | Clinical Summary ---
Author Organization [facility] Address [address] [place] [address] Care Team Providers Care Mold Filling Operator Name Role Phone Unavailable Primary Care Provider Unavailabl e Source Comments PLEASE NOTE, if this patient is a minor, it may be UNLAWFUL to discuss sensitive information that is contained in these records (such as FAMILY PLANNING, MENTAL HEALTH or SUBSTANCE ABUSE) with the minor patient's parent or other person without the patient's specific authorization.[facility] Allergies Active Allergy Reactions Criticality Noted Date Comments Haemophilus Influenzae Type B Unknown 07/16/2024 Influenza Vaccine Tr-S 11 (Pf) Other (See Comments) 08/22/2020 Fainted Other reaction(s): Other (See Comments) Fainted Tramadol Hives,Nausea and Vomiting,Rash High 05/29/2018 Nausea and vomiting Medications oxyCODONE (ROXICODONE) 5 mg tablet Take 1 Tablet by mouth every 6 (six) hours as needed for pain 10 Tablet 5 Active verapamil SR (CALAN SR) 120 mg CR tabletIndication s:Essential hypertension Take 1 Tablet by mouth nightly at bedtime for 90 days 90 Tablet 5 10/25/19 25 Active Additional Information Patient not taking.Reported on 07/27/2024 phenazopyridine (PYRIDIUM) 100 mg tabletIndication s:Kidney stone Take 1 Tablet by mouth 3 (three) times daily with meals 12 Tablet 1 5 Active oxyCODONE 5 mg TbOrIndications: Kidney stone Take 5 mg by mouth every 6 (six) hours As needed for pain 12 Each 5 Active Active Problems Problem Noted Date Diagnosed Date Kidney stone 07/26/2024 Essential hypertension Encounters Date Type Department Care Team Description 08/02/2024 2:45 PM LIFE TEACHER Office Visit [facility] [address] [place] [address] [place] [phone] Raul Peter MD Kidney stone (Primary Dx) 07/27/2024 12:45 PM LIFE TEACHER - 07/27/2024 2:20 PM LIFE TEACHER Surgery [facility] [address] [place] [address] [place] [phone] Raul Peter MD CYSTOSCOPY, WITH URETEROSCOPY, LASER LITHOTRIPSY, AND INDWELLING URETERAL STENT INSERTION 07/27/2024 11:39 AM LIFE TEACHER Anesthesia Event [facility] [address] [place] [address] [place] [phone] Shahab Yepez CRNA 07/27/2024 10:08 AM LIFE TEACHER - 07/27/2024 11:59 PM LIFE TEACHER Hospital Encounter [facility] [address] [place] [address] [place] [phone] Discharge Disposition: Home or Self Care 07/27/2024 9:06 AM LIFE TEACHER - 07/27/2024 2:41 PM LIFE TEACHER Hospital Encounter [facility] [address] [place] [address] [place] [phone] Raul Peter MD Kidney stone Discharge Disposition: Home or Self Care 07/26/2024 2:30 PM LIFE TEACHER Office Visit [facility] [address] [place] [address] [place] [phone] Brittany Torres PA-C Essential hypertension (Primary Dx) 07/26/2024 1:30 PM LIFE TEACHER Office Visit [facility] [address] [place] [address] [place] [phone] Raul Peter MD Kidney stone (Primary Dx) 07/26/2024 1:38 AM LIFE TEACHER - 07/26/2024 11:59 PM LIFE TEACHER Hospital Encounter [facility] [address] [place] [address] [place] [phone] Discharge Disposition: Home or Self Care 07/26/2024 12:57 AM LIFE TEACHER - 07/26/2024 3:22 AM LIFE TEACHER Emergency [facility] [id number] [place] [phone] Burke Ruiz MD Left flank pain (Primary Dx); Pain due to ureteral stent, initial encounter ([facility]) Discharge Disposition: Home or Self Care 07/26/2024 Travel from Last 3 Months Social History Tobacco Use Types Packs/Day Years Used Date Smoking Tobacco: Every Day Cigarettes Passive Smoke Exposure: Current Smokeless Tobacco: Never Tobacco Cessation:Ready to Q uit: No; Counseling Given: Yes Alcohol Use Standard Drinks/Week Comments Yes 0 (1 standard drink = 0.6 oz pur e alcohol) 1-2 on Social Connections Answer Date Recorded Connectedness 0 04/04/2024 Financial Resource Strain Answer Date R ecorded Financial Resource Strain 0 2022 Stress Answer Date Recorded Stress 0 01/30/2023 Physical Activity Answer Date Recorded Physical Activity 0 01/30/2023 Food Insecurity Answer Date Recorded Food 0 04/15/2024 Transportation Needs Answer Date Record ed Transportation 0 01/30/2023 Housing Stability Answer Date Recorded Housing 0 01/30/2023 Safety and Environment Answer Date Jerson rded Safety 0 01/30/2023 Utilities Answer Date Recorded Utilities 0 01/30/2023 Employment Answer Date Recorded Stress 0 04/04/2024 Sex and Gender Information Value Date Recorded Sex Assigned at Not on file Legal Sex Male 7:36 PM PDT Gender Identity Not on file Sexual Orientation Not on file Last Filed Vital Signs Vital Sign Reading Time Taken Comments Blood Pressure 118/80 08/02/2024 2:06 PM LIFE TEACHER Pulse 82 08/02/2024 2:06 PM LIFE TEACHER Temperature 35.8 C (96.5 F) 08/02/2024 2:06 PM LIFE TEACHER Respiratory Rate 16 07/27/2024 1:49 PM LIFE TEACHER Oxygen Saturation 98% 08/02/2024 2:06 PM LIFE TEACHER Inhaled Oxygen Concentration - - Weight 103.1 kg (227 lb 6.4 oz) 07/27/2024 9:23 AM LIFE TEACHER Height 167.6 cm (5' 6) 07/27/2024 9:23 AM LIFE TEACHER Body Mass Index 36.7 07/27/2024 9:23 AM LIFE TEACHER Plan of Treatment Health Maintenance Due Date Last Done Comments Hepatitis C Screening 1988 Lipid Screening 1988 Urine Drug Screen 1988 HIV Screening 12/14/2003 Imm-DTaP/Tdap/Td (1 - Tdap) 12/14/2007 Imm-Hepatitis B (1 of 3 - 19+ 3-dose series) 8 Imm-Pneumococcal (1 of 2 - PCV) 12/14/2007 [id number] (1 - season) 2024 Imm-Influenza (#1) 2024 Alcohol and Drug Screen 07/21/2024 Depression Annual Screen 07/21/2024 Tobacco Cessation Counseling (#1) 07/26/2025 Diabetes Screening 07/26/2027 07/26/2024 Medical Devices Implanted Type Area Dulser Device Identifier Shelf Expiration Date Model / Serial / Lot Stent Ureteral Pecuflex 6 X 24cm-[facility] - [id number] Implanted:Qty : 1 on 07/27/2024 by Raul Peter MD at [facility] Implant Left: Ureter [employer] 12/02/2026 [id number] / [id number] / [id number] Procedures Procedure Name Priority Date/Time Associated Diagnosis Comments XR C ARM FLUORO Routine 07/27/2024 12:44 PM LIFE TEACHER STONE ANALYSIS Routine 07/27/2024 12:32 PM LIFE TEACHER Kidney stone SC AN ELECTIVE ENDOTRACHEAL AIRWAY Routine 07/27/2024 11:44 AM LIFE TEACHER CYSTO/URETERO W/LITHOTRIPSY &INDWELL STENT INSRT 07/27/2024 11:19 AM LIFE TEACHER Kidney stone Special Needs flexible ureteroscope CT ABDOMEN PELVIS WITHOUT CONTRAST STAT 07/26/2024 1:55 AM LIFE TEACHER SST TUBE Routine 07/26/2024 1:41 AM LIFE TEACHER LIGHT BLUE TOP Routine 07/26/2024 1:41 AM LIFE TEACHER EXTRA TUBES Routine 07/26/2024 1:41 AM LIFE TEACHER COMPREHENSIVE METABOLIC PANEL STAT 07/26/2024 1:40 AM LIFE TEACHER CBC AND DIFFERENTIAL STAT 07/26/2024 1:40 AM LIFE TEACHER URINE CULTURE STAT 07/26/2024 1:29 AM LIFE TEACHER URINALYSIS CHEM AND MICROSCOPIC WITH REFLEX CULTURE STAT 07/26/2024 1:29 AM LIFE TEACHER URINALYSIS COMPLETE W/ REFLEX TO CULTURE (LW) STAT 07/26/2024 1:29 AM LIFE TEACHER from Last 3 Months Results * XR C ARM FLUORO (07/27/2024 12:44 PM LIFE TEACHER) Narrative RIS [id number] Melinta PACS - 07/30/2024 12:13 PM LIFE TEACHER This exam was not interpreted by a Radiologist. Please review the appropriate patient encounter for additional information. us Raul Peter MD IMG FLUOROSCOPY PROCEDURES Fi nal Result RIS [id number] [employer] * Stone analysis (07/27/2024 12:32 PM LIFE TEACHER) Kidney Stone Analysis DNR 08/02/2024 9:06 AM [facility] Source: Left Ureter 08/02/2024 9:06 AM [facility] Interpretation SEE COMMENTS 08/02/19 9:06 AM [facility] Comment:RESULT: 100% Calcium oxalate monohydrate. Result Comment SEE COMMENTS 08/02/19 9:06 AM [facility] Comment: For stones containing calcium oxalate, calcium phosphate, and/or uric acid, a 24 hr urinary supersaturation test may help detect underlying risk factors for this type of stone formation and provide guidance for a stone prevention strategy. ADDITIONAL INFORMATION This test was developed and its performance characteristics determined by [facility] in a manner consistent with CLIA requirements. This test has not been cleared or approved by the U.S. Food and Drug Administration. Test Performed by: [facility] - [address] [address] Canvas Goods Maker: Reyna Sanchez Ph.D.; CLIA# [id number] CALCULUS Structure of left ureter / Unknown 07/27/2024 12:32 PM LIFE TEACHER 07/27/2024 1:50 PM LIFE TEACHER Comment:Pre-op diagnosis: Kidney stone [N20.0] Raul Peter MD LAB MICROBIOLOGY - GENERAL OR DERABLES Final Result JOSHUA * SC AN ELECTIVE ENDOTRACHEAL AIRWAY (07/27/2024 11:44 AM LIFE TEACHER) Narrative Tree Whitney RN - 07/27/2024 11:44 AM LIFE TEACHER Tree Whitney RN 07/27/2024 11:51 AM Airway Date/Time: 07/27/2024 11:44 AM Urgency: elective General Information and Staff Patient location during procedure: [place] Other anesthesia staff: Tree Whitney RN Performed: SRNA Performed by: Tree Whitney RN Authorized by: Shahab Yepez CRNA Indications and Patient Condition Indications for airway management: anesthesia Spontaneous Ventilation: absent Sedation level: deep Preoxygenated: yes Patient position: sniffing MILS maintained throughout Mask difficulty assessment: 0 - not attempted Final Airway Details Final airway type: endotracheal airway Successful airway: ETT Cuffed: yes Successful intubation technique: video laryngoscopy Facilitating devices/methods: intubating stylet and cricoid pressure Endotracheal tube insertion site: oral Blade: Rakesh Blade size: #3 ETT size (mm): 7.5 Cormack-Lehane Classification: grade I - full view of glottis Placement verified by: chest auscultation and capnometry Measured from: teeth ETT to teeth (cm): 24 Number of attempts at approach: 1 Additional Comments Head/neck neutral. Dentition unchanged. Shahab Yepez FRYER LINE HELPER ANESTHESIA ORDERABLES Final Result * CT ABDOMEN PELVIS WITHOUT CONTRAST (07/26/2024 1:55 AM LIFE TEACHER) Anatomical Region Laterality Modality Pelvis Computed Tomogra phy 07/26/2024 1:38 AM LIFE TEACHER Impressions 07/27/2024 6:56 AM LIFE TEACHER Left double-J ureteral stent with mild left-sided hydronephrosis and obstructing 8 mm stone within the left proximal ureter. Narrative 07/27/2024 6:56 AM LIFE TEACHER STUDY: CT ABDOMEN PELVIS WITHOUT CONTRAST INDICATION: Abdominal pain. TECHNIQUE: Auto dosage reduction and iterative reconstruction techniques employed. FINDINGS: Lung bases are clear. Fatty infiltration of the liver. Hepatomegaly. Gallbladder within normal limits. Adrenal glands are within normal limits. Pancreas within normal limits. Spleen is unremarkable. There is a double-J ureteral stent, the superior portion of the left renal stent is within the mid pole calyx. There is mild left-sided hydronephrosis with a 8 mm obstructing stone left proximal ureter series 2 image 69. Nonobstructing stone left kidney as well. No right-sided hydronephrosis. No dilated loops of large or small bowel. Low vague attenuation within the right lower pole of the kidney is evident. Some slight fat stranding as well. No dilated loops of large or small bowel. Appendix within normal limits. Mild prostatomegaly. No focal fluid collections. Procedure Note Calvin Aguilera MD - 07/27/2024 STUDY: CT ABDOMEN PELVIS WITHOUT CONTRAST INDICATION: Abdominal pain. TECHNIQUE: Auto dosage reduction and iterative reconstruction techniques employed. FINDINGS: Lung bases are clear. Fatty infiltration of the liver.Hepatomegaly. Gallbladder within normal limits. Adrenal glands are within normallimits. Pancreas within normal limits. Spleen is unremarkable. There is adouble-J ureteral stent, the superior portion of the left renal stent is within themid pole calyx. There is mild left-sided hydronephrosis with a 8 mmobstructing stone left proximal ureter series 2 image 69. Nonobstructing stone leftkidney as well. No right-sided hydronephrosis. No dilated loops of large orsmall bowel. Low vague attenuation within the right lower pole of the kidneyis evident. Some slight fat stranding as well. No dilated loops of large orsmall bowel. Appendix within normal limits. Mild prostatomegaly. No focalfluid collections. IMPRESSION: Left double-J ureteral stent with mild left-sided hydronephrosis and obstructing 8 mm stone within the left proximal ureter. Burke Ruiz MD IMG CT PROCEDURES Final Result * SST Extra Tube (07/26/2024 1:41 AM LIFE TEACHER) Blood Venous blood specimen / Unknown Venipuncture / Unknown 07/26/2024 1:41 AM LIFE TEACHER 07/26/2024 1:41 AM LIFE TEACHER Burke Ruiz MD LAB BLOOD ORDERABLES Final Resul t [place] [address] [place] [address] * Light Blue Top (07/26/2024 1:41 AM LIFE TEACHER) Blood Venous blood specimen / Unknown Venipuncture / Unknown 07/26/2024 1:41 AM LIFE TEACHER 07/26/2024 1:41 AM LIFE TEACHER Burke Ruiz MD LAB BLOOD ORDERABLES Final Resul t [place] [address] [place] [address] * CBC and differential (07/26/2024 1:40 AM LIFE TEACHER) Auto WBC 8.37 3.20 - 11.00 10*3/uL 07/26/2024 1:52 AM [facility] RBC 4.88 4.14 - 5.76 10*6/uL 07/26/2024 1:52 AM [facility] Hemoglobin 14.2 12.9 - 16.9 g/dL 07/26/2024 1:52 AM [facility] Hematocrit 41.8 38.4 - 49.7 % 07/26/2024 1:52 AM [facility] MCV 85.7 81.4 - 99 fL 07/26/2024 1:52 AM [facility] MCH 29.1 26.7 - 33.1 pg 07/26/2024 1:52 AM [facility] MCHC 34.0 31.6 - 35.5 g/dL 07/26/2024 1:52 AM [facility] RDW 12.8 11.5 - 14.5 % 07/26/2024 1:52 AM [facility] Neutrophils % 61.8 % 07/26/2024 1:52 AM [facility] Lymphocytes % 25.3 % 07/26/2024 1:52 AM [facility] Monocytes % 9.4 % 07/26/2024 1:52 AM [facility] Eosinophils % 2.3 % 07/26/2024 1:52 AM [facility] Basophils % 0.7 % 07/26/2024 1:52 AM [facility] Lymphocytes Absolute 2.12 0.80 - 3.30 10*3/uL 07/26/2024 1:52 AM [facility] Monocytes Absolute 0.79 0.20 - 0.90 10*3/uL 07/26/2024 1:52 AM [facility] Eosinophils Absolute 0.19 0.00 - 0.70 10*3/uL 07/26/2024 1:52 AM [facility] Basophils Absolute 0.06 0.00 - 0.10 10*3/uL 07/26/2024 1:52 AM [facility] Platelets 241.0 130.0 - 375.0 10*3/uL 07/26/2024 1:52 AM [facility] Neutrophils Abs Auto 5.17 1.50 - 7.60 10*3/uL 07/26/2024 1:52 AM [facility] nRBC 0.0 /100 WBCs 07/26/2024 1:52 AM [facility] IMMATURE GRANULOCYTE%(AUT O) 0.5 07/26/2024 1:52 AM [facility] Absolute Immature Granulocyte 0.04 0 - 0.6 10*3/uL 07/26/2024 1:52 AM [facility] NUCLEATED RED BLOOD CELLS COUNT ABSOLUTE 0.00 0 - 0.11 K/uL 07/26/2024 1:52 AM [facility] MPV 9.9 8.5 - 12.0 % 07/26/2024 1:52 AM [facility] Blood Venous blood specimen / Unknown Venipuncture / Unknown 07/26/2024 1:40 AM [facility] 07/26/2024 1:40 AM [facility] us Burke G Sara MD LAB BLOOD ORDERABLES Final Resul t [place] [address] [place] [id number] * (ABNORMAL) Comprehensive metabolic panel (07/26/2024 1:40 AM [facility]) Sodium 138.0 137.0 - 145.0 mmol/L 07/26/2024 1:55 AM [facility] Potassium 4.1 3.5 - 5.1 mmol/L 07/26/2024 1:55 AM [facility] Chloride 104 98 - 107 mmol/L 07/26/2024 1:55 AM [facility] CO2 22.0 22.0 - 30.0 mmol/L 07/26/2024 1:55 AM [facility] Anion Gap 12 3 - 15 mmol/L 07/26/2024 1:55 AM [facility] BUN 27.0(A) 9.0 - 20.0 mg/dL 07/26/2024 1:55 AM [facility] Creatinine 1.10 0.66 - 1.25 mg/dL 07/26/2024 1:55 AM [facility] BUN/Creatinine Ratio 24.55 07/26/2024 1:55 AM [facility] Glucose 116(A) 70 - 100 mg/dL 07/26/2024 1:55 AM [facility] Calcium 9.4 8.6 - 10.3 mg/dL 07/26/2024 1:55 AM [facility] AST 63(A) 17 - 59 U/L 07/26/2024 1:55 AM [facility] ALT (SGPT) 166(A) 4 - 50 U/L 07/26/2024 1:55 AM [facility] Alkaline Phosphatase 71 38 - 126 U/L 07/26/2024 1:55 AM [facility] Total Protein 8.4(A) 6.3 - 8.2 g/dL 07/26/2024 1:55 AM [facility] Albumin 5.0 3.5 - 5.0 g/dL 07/26/2024 1:55 AM [facility] A/G Ratio 1.47 07/26/2024 1:55 AM [facility] Total Bilirubin 0.7 0.2 - 1.3 mg/dL 07/26/2024 1:55 AM [facility] eGFR >60.0 >60.0 mL/min/1.7 3m*2 07/26/2024 1:55 AM [facility] Globulin, Total 3.4 g/dL 1:55 AM [facility] Blood Venous blood specimen / Unknown Venipuncture / Unknown 07/26/2024 1:40 AM LIFE TEACHER 07/26/2024 1:40 AM [facility] us Burke Ruiz MD LAB BLOOD ORDERABLES Final Resul t [place] [address] [place] [address] * (ABNORMAL) Urinalysis Chem and Microscopic w/ Reflex Culture (07/26/2024 1:29 AM LIFE TEACHER) Color, Urine YELLOW YELLOW, STRAW 07/26/2024 1:54 AM [facility] Clarity, Urine CLEAR CLEAR 07/26/2024 1:54 AM [facility] Glucose, Ur NEGATIVE NEGATIVE mg/dL 07/26/2024 1:54 AM [facility] Bilirubin, Urine NEGATIVE NEGATIVE 07/26/2024 1:54 AM [facility] Ketones, Urine NEGATIVE NEGATIVE 07/26/2024 1:54 AM [facility] Specific [place], Urine 1.020 1.010 , 1.015 , 1.020, 1.025 , 1.000 07/26/2024 1:54 AM [facility] pH, Urine 6.5 5.0, 6.0, 6.5, 7.0, 7.5, 8.0, 5.5, >8.5 07/26/2024 1:54 AM [facility] Protein, Urine 100(A) NEGATIVE mg/dL 07/26/2024 1:54 AM [facility] Nitrite, Urine NEGATIVE NEGATIVE 07/26/2024 1:54 AM [facility] Leukocyte Esterase SMALL(A) NEGATIVE 07/26/2024 1:54 AM [facility] Urobilinogen, Urine 0.2 0.2, NORMAL, 1.0 mg/dL 07/26/2024 1:54 AM [facility] RBC, Urine 20-30(A) 0 - 2 /HPF 07/26/2024 1:54 AM [facility] WBC, Urine 0-5 0 - 5 /HPF 07/26/2024 1:54 AM [facility] Squamous Epithelial, Urine None Seen None /HPF 07/26/2024 1:54 AM [facility] Bacteria, Urine None Seen None Seen /HPF 07/26/2024 1:54 AM [facility] Mucus, Urine Present(A) NEGATIVE /LPF 07/26/2024 1:54 AM [facility] Blood, Urine LARGE(A) NEGATIVE per uL 07/26/2024 1:54 AM [facility] Urine Urine specimen obtained by clean catch procedure / Unknown Non-blood Collection / Unknown 07/26/2024 1:29 AM LIFE TEACHER 07/26/2024 1:40 AM LIFE TEACHER us Burke Ruiz MD LAB URINE ORDERABLES Final Resul t [place] [address] [place] [address] * Urine culture (07/26/2024 1:29 AM LIFE TEACHER) Urine Culture No growth KALLIE REPORTING 07/27/2024 9:26 AM [facility] Urine Urine specimen obtained by clean catch procedure / Unknown Non-blood Collection / Unknown 07/26/2024 1:29 AM LIFE TEACHER 07/26/2024 1:40 AM LIFE TEACHER Burke Ruiz MD LAB MICROBIOLOGY - GENERAL ORDER DK Final Result [place] [address] [place] [address] from Last 3 Months Insurance [facility] [place] [place] Advance Directives * Full Code (Latest Code Status on File) Date Activated Date Inactivated Comments 07/27/2024 7:08 AM 07/27/2024 9:17 AM
== END 2024-10-06 21:24 | disposition home or self-care (01) ==
LOC: ED 21:23
PROVIDERS: Emergency Provider Family Medicine
DX: S00.91XA Abrasion of unspecified part of head, initial encounter (principal); W22.8XXA Striking against or struck by other objects, initial encounter
CPT/HCPCS: 99283; 99284; A9270